=== PATIENT | female | born 1970 | race Asian ===

== ENCOUNTER 2019-04-21 06:28 | Day surgery (SDC) | payer OTHER ==
[~2019-04-21] VITALS: Ht 154.9 cm; Wt 76.7 kg
[2019-04-21] MEDS ORDERED: METF500T2 PO (08:59)
[2019-04-21] MEDS ORDERED: PROPOFOL 200 MG/20 ML VIAL IV ONE (12:24)
[2019-04-21] MEDS ORDERED: SEVOFLURANE 250 ML BTL INH ONE (12:24)
[2019-04-21] MEDS ORDERED: LIDOCAINE 2% 100 MG/5 ML SYR IVP ONE (12:24)
[2019-04-21] MEDS ORDERED: MIDAZOLAM 2 MG/2 ML VIAL ONE (12:31)
[2019-04-21] MEDS ORDERED: ONDANSETRON 4 MG/2 ML VIAL IVP PRN (12:55)
[2019-04-21] MEDS ORDERED: BLOOD GLUCOSE MONITORING 1 DEV DEV FS SCH (12:55)
[2019-04-21] MEDS ORDERED: HYDROmorphone 1 MG/ML AMP IVP PRN (12:55)
== END 2019-04-21 14:33 | disposition home or self-care (01) ==
LOC: MOR 06:28 → MMU 06:29 → MOR 14:33
PROVIDERS: ATTEND Obstetrics & Gynecology
DX: Z30.431 Encounter for routine checking of intrauterine contraceptive device (principal); E11.9 Type 2 diabetes mellitus without complications; E66.3 Overweight; Z79.84 Long term (current) use of oral hypoglycemic drugs; Z80.0 Family history of malignant neoplasm of digestive organs
CPT/HCPCS: 58562; 82948; 93005; J2001; J2250; J2704; J7030; 88300